=== PATIENT | male | born 2000 | race Caucasian/White ===

== ENCOUNTER 2021-09-23 15:37 | Outpatient (REF) | payer BC, SELFPAY ==
--- NOTE | ~2021-09-23 | CT_ITS ---
EXAMINATION: CT SOFT TISSUE NECK WITHOUT CONTRAST CLINICAL INFORMATION: Localized swelling, mass and lump of the neck. COMPARISON: None TECHNIQUE: Helical imaging was performed in the axial plane with generation of coronal and sagittal reformatted images. This CT examination was performed using dose optimization techniques as appropriate, variously including the following: *Automated exposure control *Adjustment of mA and/or kV according to patient size (this includes techniques or standardized protocols for targeted exams where dose is matched to indication/reason for exam; i.e. extremities or head) *Use of iterative reconstruction technique DLP: 296 mGy-cm FINDINGS: There is a 1.1 cm lymph node and a 0.81 cm lymph node at level Ia midline. The measurements and the density are within normal limits. Similar shotty lymph nodes are seen in the submandibular space measuring 1.0 cm. The parotid glands are homogeneous in attenuation. The submandibular glands are normal. No contour abnormality or pathologic enhancement is seen within the oral cavity or pharyngeal mucosal space. The laryngeal structures are normal. The parapharyngeal fat is preserved. The carotid sheath vasculature opacifies normally. No extramucosal soft tissue mass or fluid collection is seen. No retropharyngeal fluid collection is seen. The thyroid gland is normal. The superior mediastinum is unremarkable. The lung apices are clear. The mastoid air cells and visualized portions of the paranasal sinuses are well aerated. The temporomandibular joints are normal. No periapical disease is identified. No osseous abnormalities are seen. The imaged portions of the brain parenchyma are unremarkable. CT/CT soft tissue neck wo con IMPRESSION: Two benign-appearing lymph nodes midline level Ia, where a marker has been placed.
== END 2021-09-23 15:38 | disposition home or self-care (01) ==
LOC: HO.CT 15:37
PROVIDERS: Visit Provider Otolaryngology
DX: R22.1 Localized swelling, mass and lump, neck (principal)
CPT/HCPCS: 70490

== ENCOUNTER 2025-01-24 13:39 | Outpatient (REF) | payer BC, SELFPAY ==
[2025-01-24 13:42] LABS: MANUAL DIFF FLAG NO
[2025-01-24 13:53] LABS: Basophils Percent Auto 0.5 % (0-2); Eosinophils Absolute Auto 0.1 X10*3/uL (0.0-0.4); Eosinophils Percent Auto 1.9 % (0-4); Hematocrit 35.9 % (42.0-52.0); Hemoglobin 11.5 g/dl (14.0-18.0); Imm Gran Abs Auto 0.03 X10*3/uL (0.00-0.03); Imm Gran Pct Auto 0.5 % (0.0-0.4); Lymphocytes Absolute Auto 1.4 X10*3/uL (1.2-4.9); Lymphocytes Percent Auto 21.8 % (20-40); Mean Corpuscular Hemoglobin 20.8 pg (27.0-33.0); Mean Platelet Volume 9.9 fL (9.4-12.4); Monocytes Absolute Auto 0.4 X10*3/uL (0.1-1.2); Monocytes Percent Auto 6.1 % (2-11); Neutrophils Absolute Auto 4.3 x10*3/uL (2.0-8.3); Neutrophils Percent Auto 69.2 % (45-73); Platelet Count 259 X10*3/uL (160-400); Red Blood Count 5.52 X10*6/uL (4.60-5.80); Red Cell Distribution Width 16.3 % (11.0-16.0); White Blood Count 6.3 X10*3/uL (4.8-10.8)
--- OUTSIDE RECORDS SUMMARY | 2025-01-24 13:57 | XMS_ITS | Encounter Summary ---
Author Organization [facility] Address [address] [place] [address] Phone Care Team Providers Care Surveillance Operator Name Role Phone Steven Dawson MD Primary Care Provider Unavailabl e Encounter Details Date Type Department Care Team (Late st Contact Info) Description 05/03/2017 Conversion Encounter [facility] - [address], [address] [place] [address] Steven Dawson MD Social History Tobacco Use Types Packs/Day Years Used Date Smoking Tobacco: Never Assessed Sex and Gender Information Value Date Recorded Sex Assigned at Not on file Legal Sex Male 2:32 PM EST Gender Identity Not on file Sexual Orientation Not on file documented as of this encounter Plan of Treatment Not on file documented as of this encounter Visit Diagnoses Not on filedocumented in this encounter Care Teams Surveillance Operator Relationship Specialty Start Date End Date Steven Dawson MD PCP - General 11/15/16 04/04/21 documented as of this encounter
--- OUTSIDE RECORDS SUMMARY | 2025-01-24 13:57 | XMS_ITS | Patient Health Record ---
Author Organization Efren Manning MD Address [address] [place], [place] [id number] Care Team Providers Care Security Services Specialist Name Role Phone Efren Manning Primary Care Provider [phone] Allergies No Known Allergies Results Component Value Reference Range Notes Hold Gold (Not yet reviewed by provider) Interpretation: Performing Lab:[facility], [place], [address] [place] [phone] Notes/Report: Hold Gold See Note Specimen held untested for 24 hours; Call to request Chemistry testing. Reason For Referral No Information Medications Medication SIG (Take, Route, Frequency, Duration) Notes Start Date End Date Status clonazePAM 1 MG 1/2 tab in the morni ng orally one tab at night for 30 days 09/20/2024 Active Zoloft 50 MG 1 tablet Orally Once a day for 30 day(s) 08/20/2019 Not-Taking clonazePAM 1 MG one half tab in morn ing and 1 tab at night by mouth twice a day for 30 days 12/30/2024 Active ZyrTEC Allergy 10 MG 1 tablet Orally Onc e a day for 30 day(s) Active Immunizations Vaccine Route Administration Date Status Comme arturo Fluarix Quadrivalent Unknown 08/17/[address] Perez Fluarix Quadrivalent Unknown 10/08/[address] Perez Fluarix Quadrivalent Unknown 09/15/2020 Administered Fluarix Quadrivalent Unknown 07/13/2023 Administered Social History Tobacco Use: Social History Observation Description Date Details (start date - stop date) Never Smoker NA - NA Tobacco Use/Smoking Question Answer Notes Patient is a nonsmoker Additional Findings: Tobacco Non-User Cu rrent non-smoker, currently using no form of tobacco Alcohol Screen Question Answer Notes Did you have a drink contain ing alcohol in the past year? Yes How often did you have a dri nk containing alcohol in the past year? 2 to 4 times a month (2 points) How many drinks did you have on a typical day when you were drinking in the past year? 1 or 2 drinks (0 point) How often did you have 6 or more drinks on one occasion in the past year? Never (0 point) Points 2 Interpretation Negative Problems Problem Type SNOMED Code ICD Code Onset Dates Problem Status W/U Status Risk Notes Problem 18926766 Anxiety (F41.9) Active confirmed Problem 924445863 Moderate episode of recurrent major depressive disorder (F33.1) Active confirmed Vital Signs Blood pressure diastolic 58 mm Hg 01/24/2025 eyal ght is up 2 pounds since 09-15-2020 Height 66.5 in 01/24/2025 weight is up 2 pounds since 09-15-2020 Blood pressure systolic 110 mm Hg 01/24/2025 weig ht is up 2 pounds since 09-15-2020 Weight 130 lbs 01/24/2025 weight is up 2 pounds since 09-15-2020 BMI 20.67 kg/m2 01/24/2025 weight is up 2 pounds since 09-15-2020 Encounters Encounter Location Date Provider Diagnosis Efren Manning MD [address] [place] [id number] 01/24/2025 Efren Manning Anxiety F41.9 ; Annual physical exam Z00.00 and Moderate episode of recurrent major depressive disorder F33.1 Efren Manning MD [address] [place] [address] [id number] 02/23/2024 Efren Manning MD [address] [place] [address] [id number] 03/08/2024 Efren Manning MD [address] [place] [address] [id number] 03/08/2024 Efren Manning MD [address] [place] [address] [id number] 03/08/2024 Efren Manning Anxiety F41.9 Efren Manning MD [address] [place] [address] [id number] 04/15/2024 Efren Manning MD [address] [place] [address] [id number] 05/17/2024 Efren Manning Anxiety F41.9 Efren Manning MD [address] [place] [address] [id number] 05/30/2024 Efren Manning MD [address] [place] [address] [id number] 06/03/2024 Efren Manning MD [address] [place] [address] [id number] 06/20/2024 Efren Manning MD [address] [place] [address] [id number] 07/19/2024 Efren Manning MD [address] [place] [address] [id number] 08/09/2024 Efren Manning MD [address] [place] [address] [id number] 08/19/2024 Efren Manning Anxiety F41.9 Efren Manning MD [address] [place] [address] [id number] 09/20/2024 Efren Manning Anxiety F41.9 Efren Manning MD [address] [place] [address] [id number] 10/03/2024 Efren Manning MD [address] [place] [address] [id number] 10/29/2024 Efren Manning MD [address] [place] [address] [id number] 11/29/2024 Efren Manning Anxiety F41.9 Efren Manning MD [address] [place] [address] [id number] 12/26/2024 Efren Manning MD [address] [place] [address] [id number] 12/30/2024 Efren Manning Assessments Encounter Date Diagnosis (ICD Code) Assessment Notes Treatment Notes Treatment Clinical Notes Section Notes 01/24/2025 Anxiety (ICD-10 - F41.9) referral to [facility] and ketamine with dr prieto in [place]/ INFO GIVEN TO STEFANIA TO CALL FOR APPT AT [facility] 01/24/2025 Annual physical exam (ICD-10 - Z00.00) 03/08/2024 Anxiety (ICD-10 - F41.9) 05/17/2024 Anxiety (ICD-10 - F41.9) 08/19/2024 Anxiety (ICD-10 - F41.9) 09/20/2024 Anxiety (ICD-10 - F41.9) 11/29/2024 Anxiety (ICD-10 - F41.9) 01/24/2025 Moderate episode of recurrent major depressive disorder (ICD-10 - F33.1) Plan Of Treatment Pending Test Test Name Order Date Complete Blood Count Auto Diff 5 Comprehensive [place]. Panel Fast 5 Lipid Panel with Reflex 01/24/2025 Hold Gold 01/24/2025 Insurance Providers Payer Name Payer Address Payer Phone Subscriber Number Group Number Insured Name Patient Relationship to Insured Coverage Start Date Coverage End Date [employer] [address] [place], [place] [id number] STEFANIA PEREZ Self - patient is the insured
--- OUTSIDE RECORDS SUMMARY | 2025-01-24 13:57 | XMS_ITS ---
Author Organization fEren Manning MD Address [address] [place] [phone] Care Team Providers Care School Janitor Name Role Phone Efren Manning Primary Care Provider [phone] REASON FOR VISIT RF Clonazepam Medications Medication SIG (Take, Route, Fr equency, Duration) Notes Start Date End Date Status clonazePAM 1 MG one half tab in morn ing and 1 tab at night by mouth twice a day for 30 days 12/30/2024 Active Encounters Encounter Location Date Provider Diagnosis Efren Manning MD [address] [place] [id number] 12/30/2024 Efren Manning Plan Of Treatment Medication Medication Name Sig Start Date Stop Date Notes clonazePAM 1 MG one half tab in morn ing and 1 tab at night by mouth twice a day for 30 days 12/30/2024 Progress Notes * STEFANIA PEREZ MDOB:2000 (24 yo M)Acc No.[id number]:12/30/2024 Patient:?STEFANIA PEREZ :2000???Age:24 Y???Sex:Male Address: [place], [address] * Refills? Refill clonazePAM Tablet, 1 MG, by mouth, 45, one half tab in morning and 1 tab at night, twice a day, 30 days, Refills=0 * true * Date:? Generated for Davei cecilia/Doug/eTransmitting on:?01/24/2025 01:57 PM EDT
--- OUTSIDE RECORDS SUMMARY | 2025-01-24 13:57 | XMS_ITS | Clinical Summary ---
Author Organization [facility] Address [address] [place] [phone] Phone Care Team Providers Care Drop Forge Operator Name Role Phone Unavailable Primary Care Provider Unavailabl e Allergies No known active allergies Medications methylphenidate (CONCERTA) 18 MG CR tabletIndications: Attention deficit hyperactivity disorder (ADHD), predominantly inattentive type Take 1 tablet (18 mg total) by mouth every morning Earliest Fill Date: 05/17/18. 30 tablet 8 Active methylphenidate (CONCERTA) 18 MG CR tabletIndications: Attention deficit hyperactivity disorder (ADHD), predominantly inattentive type Take 1 tablet (18 mg total) by mouth every morning Earliest Fill Date: 07/11/18. 30 tablet 8 Active BuPROPion HCl (WELLBUTRIN XL PO) Take by mouth. Active Active Problems Problem Noted Date Diagnosed Date Weight loss 08/15/2018 Overview (08/15/2018): Cause uncertain - may be due concerta and missing lunch - will recheck at home in 6 weeks Attention deficit hyperactiv ity disorder (ADHD), predominantly inattentive type 05/17/2018 Overview (08/07/2018): 04/[address] Ceja strongly indicated depression. Signs of ADHD were felt to be less significant and possibly caused by the depression. Dr. Ceja recommended regular therapy and seeing a psychiatrist in [place] as well as to consider a trial of bupropion. Depression 09/15/2015 Overview (08/07/2018): 09/15/2015 Doing well now. Not seeing a counsellor now, occ anxiety. 04/[address] Ceja strongly indicated depression. Signs of ADHD were felt to be less significant and possibly caused by the depression. Dr. Ceja recommended regular therapy and seeing a psychiatrist in [place] as well as to consider a trial of bupropion. Assessment & Plan (08/15/2018 6:02 PM EST): Doing much better - seeing psychiatrist in [place] Assessment & Plan (05/17/2018 8:04 AM EDT): See eval with Dr. Ceja. Primarily depression with some ADHD features. Will have a trial of Concerta, see a therapist in [place] and see a psychiatrist for possible Wellbutrin trial. Assessment & Plan (04/16/2018 4:36 PM EDT): Jayesh is doing much better overall, but it is still difficult to sort out the issues contributing to the sense of being weighted down, not interacting with others as much as he would like, and possible inattention as a small aspect of life issues for Jayesh. Strongly recommend seeing a counselor when return to school next month. Some substance use, but not at a level likely to be a primary cause or light truck driver of the issues. Will refer to Ric Ceja for re-evaluation for possible attentional or anxiety component to current issues. Assessment & Plan (09/27/2017 12:13 PM EST): More depression past few mos. On Lexapro and Abilify per Dr. Corley, but stopped the Abilify due to fatigue all day. 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 Had normal labs. Poor appetite. Hard time concentrating and will see Ric Ceja tomorrow. Has anxiety also. No thoughts of self harm. Not seeing a counselor now. Will also get eval at [employer] therapist in order to see a local psychiatrist in [facility]. Recheck here with me in 2-3 months. Thalassemia minor 09/03/2015 Overview (09/22/2017): 09/03/2015 FH positive for thal minor in mom and maternal GM. See labs in 1999. Low MCV, slightly low ferritin and Fe/TIBC, Hgb A=95 w/o any abnormal hemoglobins identified. Repeat labs 08/2015 show low MCV, MCH, and elevated RDW, but ferritn is well wnl. Likely still most c/w thal minor w/o iron deficiency. Resolved Problems Problem Noted Date Diagnosed Date Resolved Date Other specified disorders of male genital organs 07/23/2015 09/27/2017 Overview (09/22/2017): 07/23/2015 Recurrent discomfort over inferior pole of either testicle, L>R, that comes and goes. Now resolved since 2014. Scoliosis 07/22/2015 09/27/2017 Overview (09/22/2017): 07/22/2015 Very mild Immunizations Immunization Administration Dates Next Due DTaP 05/14/2003, 0,1999,08/27,1999 H1N1 09/22/2009 HPV, Quadrivalent 11/30/2012,07/26/2012,05/17/20 12 Hep B, ped/adol 07/24/2000,01/28/2000,1999 Hib (PRP-T) 05/14/2003, 0,1999,06/24 IPV 05/14/2003, 0,01/28/2000,08/27,1999 Influenza 08/08/2010,05/15/2009 Influenza, injectable, quadr ivalent, preservative free 09/08/2017,08/10/2016,07/23/2015,08/09,06/28/2013 Influenza, injectable, trivalent 07/26/2012 MMR 05/14/2003,07/24/2000 Meningococcal Conj (Menactra) MCV4P 08/10/2016,0 04/29/2010 Pneumococcal Conjugate 05/14/2003,07/24/2000 Tdap 04/29/2010 Varicella 09/14/2007,05/05/2000 Family History Relation Name Status Comments Cousin 1 Alive Paternal Cousin s: Healthy Cousin 2 Alive Maternal Cousin s: Spectrum disorder Father Alive Father: Allergi es, Gout (no attacks since taking Allopurinol), High cholesterol (on med), on Lisinopril for ? high blood pressure Father's Brother Alive Paternal Un marco antonio: Gout, High cholesterol (on med), Prostate cancer Maternal Grandfather Mat GFa ther: Dementia Maternal Grandmother Mat GMo ther: Thalassemia minor, of respiratory failure (? lung cancer) Mother Alive Mother: Thalass emia minor Other 1 Alive Other 2 Alive Allergies, Gout (no attacks since taking Allopurinol), High cholesterol (on med), on Lisinopril for ? high blood pressure Other 3 Alive Gout, High chol esterol (on med), Prostate cancer Other 4 Alive Healthy Other 5 Alive Healthy Other 6 Alive Healthy Other 7 Alive Heart attack (l ate 39 Other 8 Alive Spectrum disord er Other 9 Alive Thalassemia min or Other 10 Breast cancer ( at age 73) Other 11 Dementia Other 12 Thalassemia min or, of respiratory failure (? lung cancer) Paternal Grandfather Alive Pat GFa ther: Heart attack (late 40 Paternal Grandmother Pat GMo ther: Breast cancer ( at age 73) Social History Tobacco Use Types Packs/Day Years Used Date Smoking Tobacco: Never Smokeless Tobacco: Never Alcohol Use Standard Drinks/Week Comments Yes 2 (1 standard drink = 0.6 oz pur e alcohol) Very infrequent Sex and Gender Information Value Date Recorded Sex Assigned at Not on file Legal Sex Male 2:32 PM EST Gender Identity Not on file Sexual Orientation Not on file Last Filed Vital Signs Vital Sign Reading Time Taken Comments Blood Pressure 124/72 08/15/2018 5:43 PM EST Pulse 95 08/15/2018 5:43 PM EST Temperature 36.9 ??C (98.5 ??F) 09/15/2015 1 2:00 AM EST Respiratory Rate - - Oxygen Saturation - - Inhaled Oxygen Concentration - - Weight 58.9 kg (129 lb 12.8 oz) 08/15/2018 5:43 PM EST Height 168.9 cm (5' 6.5 ) 08/15/2018 5:43 PM EST Body Mass Index 20.64 08/15/2018 5:43 PM EST Plan of Treatment Health Maintenance Due Date Last Done Comments DTaP,Tdap,and Td Vaccines (7 - Td or Tdap) 04/29/2020 04/29/2010, 05/14/2003, 07/24/2000, Additional history exists Influenza Vaccines (#1) 2024 09/08/20 17, 08/10/2016, 07/23/2015, Additional history exists COVID-19 Vaccine ( season) 2024 Hepatitis B Vaccines Completed 07/24/2000, 01/28/2000, 1999 HIB Vaccines Completed 05/14/2003, 09/27, 1999, Additional history exists IPV Vaccines Completed 05/14/2003, 04/25, 01/28/2000, Additional history exists MMR Vaccines Completed 05/14/2003, 07/24/2000 Pneumococcal Vaccine Completed 05/14/2003, 07/24/20 00 Varicella Vaccines Completed 09/14/2007, 05/05/2000 HPV Vaccines Completed 11/30/2012, 09/2011, 05/17/2012 Meningococcal Vaccine Completed 08/10/2016, 010 Hepatitis A Vaccines Aged Out No long er eligible based on patient's age to complete this topic Men B Vaccine Aged Out No longer elig ible based on patient's age to complete this topic
--- OUTSIDE RECORDS SUMMARY | 2025-01-24 13:57 | XMS_ITS ---
Author Organization Efren Manning MD Address [address] [place] [phone] Care Team Providers Care Nude Model Name Role Phone Efren Manning Primary Care Provider [phone] REASON FOR VISIT Ins change Encounters Encounter Location Date Provider Diagnosis Efren Manning MD [address] [place] [phone] 12/26/2024 Efren Manning Plan Of Treatment No Information Progress Notes * FERNANDO PEREZ MDOB:2000 (24 yo M)Acc No.[id number]:12/26/2024 Patient:?FERNANDO PEREZ :2000???Age:24 Y???Sex:Male Address:[address] [place], [address] * true * Date:? Generated for Davei cecilia/Doug/eTransmitting on:?01/24/2025 01:57 PM EDT
--- OUTSIDE RECORDS SUMMARY | 2025-01-24 13:57 | XMS_ITS ---
Author Organization Efren Manning MD Address [address] [place], [place] [id number] Care Team Providers Care Bindery Technician Name Role Phone Efren Manning Primary Care Provider Allergies No Known Allergies REASON FOR VISIT here for yearly anxiety Medications Medication SIG (Take, Route, Frequency, Duration) [...] e a day for 30 day(s) Active Social History Tobacco Use: Social History Observation [...] Never (0 point) Points 2 Interpretation Negative Vital Signs Blood pressure systolic 110 mm Hg 01/25/20 25 Blood pressure diastolic 58 mm Hg 025 Height 66.5 in 01/24/2025 Weight 130 lbs 01/24/2025 BMI 20.67 kg/m2 01/24/2025 weight is up 2 pounds since 09-15-2020 Encounters Encounter Location Date Provider Diagnosis Efren Manning MD [address] [place], [place] [id number] 01/24/2025 Efren Manning Anxiety F41.9 ; Annual physical exam Z00.00 and Moderate episode of recurrent major depressive disorder F33.1 Assessments Encounter Date Diagnosis (ICD Code) Assessment Notes Treatment Notes Treatment Clinical Notes Section Notes 01/24/2025 Anxiety (ICD-10 - F41.9) referral to [facility] and ketamine with dr prieto in [facility]/ INFO GIVEN TO STEFANIA TO CALL FOR APPT AT [facility] 01/24/2025 Annual physical exam (ICD-10 - Z00.00) 01/24/2025 Moderate episode of recurrent major depressive disorder (ICD-10 - F33.1) Plan Of Treatment Treatment Notes Assessment Notes Anxiety referral to [facility] and ketamine with dr prieto in [facility]/ INFO GIVEN TO STEFANIA TO CALL FOR APPT AT [facility] Pending Test Test Name Order Date Complete Blood Count Auto Diff 5 Comprehensive [place]. Panel Fast 5 Lipid Panel with Reflex 01/24/2025 Next Appt Details Follow Up: 2 Months, Reason: Progress Notes * STEFANIA PEREZ MDOB:2000 (24 yo M)Acc No.[id number]:01/24/2025 Progress Notes Patient:?STEFANIA PEREZ Provider:?Efren Manning MD :2000???Age:24 Y???Sex:Male Angel e:01/24/2025 Address:[address] [place] [address] [id number] Subjective: * Chief Complaints: * ???1. Here for yearly anxiet y. * HPI: ???Depression Screening:?PHQ-9?Little interest or pleasure in doing things?More than half the days,?Feeling down, depressed, or hopeless?Nearly every day,?Trouble falling or staying asleep, or sleeping too much?Not at all,?Feeling tired or having little energy?Nearly every day,?Poor appetite or overeating?Nearly every day,?Feeling bad about yourself or that you are a failure, or have let yourself or your family down?Nearly every day,?Trouble concentrating on things, such as reading the newspaper or watching television?Nearly every day,?Moving or speaking so slowly that other people could have noticed; or the opposite, being so fidgety or restless that you have been moving around a lot more than usual?Several days,?Thoughts that you would be better off or of hurting yourself in some way?Not at all,?Total Score?18,?Interpretation?Moderately Severe Depression.?Interpretation and Intervention?Depression Screening Findings?Positve - Review of PHQ-9 found positive for depression,?Follow-Up for Depression?: Existing condition.?SDOH Questions:?SDOH Questions?In the past year have you been worried about losing housing??No,?In the past year have you or any family members you live with been unable to get any of the following when it was really needed? Check all that apply:?None.?Symptom(s):? patient is a 24 yo male having a lot of panic attacks. had been on buspar and it made him nauseaous. had a therapist in [place] but his insurance didn't cover it./ having some paranoid thoughts and panic is getting worse. * ROS:?General/Constitutional:?Denies?Chills.?Denies?Fatigue.?Denies?Fever.?Denies?Headache.?ENT:?Denies?Sore throat.?Respiratory:?Denies?Cough.?Denies?Shortness of breath at rest.?Denies?Shortness of breath with exertion.?Gastrointestinal:?Denies?Diarrhea.?Denies?Nausea.?Psychiatric:?Admits?Anxiety.?Admits?Depressed mood.?Admits?Difficulty sleeping.?Admits?Stressors.?Admits?Substance abuse,?nicotine.?Denies?Suicidal thoughts.? * Medical History:?Medical His tory Verified. * Family History:?Father: wyatt sheldon 70 yrs.?Mother: alive 68 yrs.?1 brother(s) . .? No Famly history of drug abuse or mental illness. * Social History:?Tobacco Use:?Tobacco Use/Smoking?Patient is a?nonsmoker,?Additional Findings: Tobacco Non-User?Current non-smoker, currently using no form of tobacco.?Drugs/Alcohol:?Alcohol Screen?Did you have a drink containing alcohol in the past year??Yes,?How often did you have a drink containing alcohol in the past year??2 to 4 times a month (2 points),?How many drinks did you have on a typical day when you were drinking in the past year??1 or 2 drinks (0 point),?How often did you have 6 or more drinks on one occasion in the past year??Never (0 point),?Points?2,?Interpretation?Negative.?Miscellaneous:?Caffeine: no. Children: no. Exercise: yes, run and play tennis a couple times a week. Housing: living with relatives. Marital status: single. Occupation: weeks/months/years. Pets: none. Travel outside of the [place]: no. * Medications:?Taking ZyrTEC A llergy 10 MG Tablet 1 tablet Orally Once a day , Taking clonazePAM 1 MG Tablet 1/2 tab in the morning orally one tab at night , Taking clonazePAM 1 MG Tablet one half tab in morning and 1 tab at night by mouth twice a day , Not-Taking/PRN Zoloft 50 MG Tablet 1 tablet Orally Once a day , Discontinued buPROPion HCl ER (SR) 150 MG Tablet Extended Release 12 Hour 1 tablet in the morning Orally Once a day , Discontinued busPIRone HCl 7.5 MG Tablet 1 tablet Orally Twice a day , Discontinued Amoxicillin-Pot Clavulanate 875-125 MG Tablet 1 tablet Orally every 12 hrs , Medication List reviewed and reconciled with the patient * Allergies:?N.K.D.A. Objective: * Vitals:?Ht: 66.5, Wt: 130, B IN:20.67, BP:110/58, Wt-k.97. weight? is up 2 pounds since 09-15-2020. * Examination: ???General Examination: ?GENERAL APPEARANCE:?well developed, well nourished.?HEAD:?normocephalic.?SKIN:?good turgor.?HEART:?regular rate and rhythm, no murmurs, rubs, gallops.?LUNGS:?no wheezes, rales, rhonchi, good air movement, clear to auscultation bilaterally.? Assessment: * Assessment: 1.?Annual physical exam - Z0 0.00 (Primary)???2.?Anxiety - F41.9???3.?Moderate episode of recurrent major depressive disorder - F33.1??? Plan: * Treatment: 2.?Anxiety?LAB: Complete Blood Count Auto Diff ?LAB: Comprehensive [place]. Panel Fast ?LAB: Lipid Panel with Reflex Notes: referral to [facility] and ketamine with dr prieto in [facility]/ INFO GIVEN TO STEFANIA TO CALL FOR APPT AT [facility]?? 3.?Moderate episode of recur rent major depressive disorder?LAB: Complete Blood Count Auto Diff ?LAB: Comprehensive [place]. Panel Fast ?LAB: Lipid Panel with Reflex * Procedure Codes:?02931 VENIP UNCT, ROUTINE* * Follow Up:?2 Months * * The named appointment provid er may or may not be the originator of this progress note, and it is not deemed complete until electronically signed by the appointment provider. Sign off status: Pending * Provider:?Efren Manning MD Date:?0 01/24/2025 Generated for Juan Carlos brooks/Doug/Kerline on:?01/24/2025 01:57 PM EDT History and Physical Notes * HPI (History of Present Illness) Category Sub-Category Detail Notes Category Not es Symptom(s) patient is a 24 yo male having a lot of panic attacks. had been on buspar and it made him nauseaous. had a therapist in [place] but his insurance didn't cover it./ having some paranoid thoughts and panic is getting worse. Depression Screening PHQ-9 Little inte rest or pleasure in doing things: More than half the days Feeling down, depressed, or hopeless: Ne laura every day Trouble falling or staying asleep, or sl eeping too much: Not at all Feeling tired or having little energy: N early every day Poor appetite or overeating: Nearly ever y day Feeling bad about yourself o r that you are a failure, or have let yourself or your family down: Nearly every day Trouble concentrating on thi ngs, such as reading the newspaper or watching television: Nearly every day Moving or speaking so slowly that other people could have noticed; or the opposite, being so fidgety or restless that you have been moving around a lot more than usual: Several days Thoughts that you would be b sasha off or of hurting yourself in some way: Not at all Total Score: 18 Interpretation: Moderately Severe Depres siva Interpretation and Intervention Depressi on Screening Findings: Positve - Review of PHQ-9 found positive for depression Follow-Up for Depression: : Existing con dition SDOH Questions SDOH Questions In the past year have you been worried about losing housing?: No In the past year have you or any family members you live with been unable to get any of the following when it was really needed? Check all that apply:: None Examination Category Sub-Category Detail Notes Category Not es General Examination GENERAL APPEARANCE: well developed , well nourished HEAD: normocephalic HEART: regular rate and rhy thm, no murmurs, rubs, gallops LUNGS: no wheezes, rales, r honchi, good air movement, clear to auscultation bilaterally SKIN: good turgor
--- OUTSIDE RECORDS SUMMARY | 2025-01-24 13:58 | XMS_ITS | Patient Health Record ---
Author Organization [facility] Address [address] [facility] [address] [place] [address] Allergies Allergen (clinical drug ingredient) Drug/Non Drug Allergy documented on EMR Reaction Allergy Type Onset Date Status peanut allergenic extract Peanut (Diagnostic) Unknown Drug Allergy Active peanut oil Peanut Oil Unknown Drug Allergy Activ e Reason For Referral No Information Medications Medication SIG (Take, Route, Fr equency, Duration) Notes Start Date End Date Status clonazePAM 0.5 MG 1 tablet at bedtime Orally Once a day Active Problems Problem Type SNOMED Code ICD Code Onset Dates Problem Status W/U Status Risk Notes Problem Hemorrhage of rectum and anus (485908391) Hemorrhage of anus and rectum (K62.5) Active confirmed Problem Atopic dermatitis, unspecified (L20.9) Active confirmed Plan Of Treatment No Information Insurance Providers Payer Name Payer Address Payer Phone Subscriber Number Group Number Insured Name Patient Relationship to Insured Coverage Start Date Coverage End Date [employer] P.OBaldev [place] [id number] [place] [phone] [id number] Jayesh Sales Self - patient is the insured
[2025-01-24 14:30] LABS: Alanine Aminotransferase 31 U/L (0-40); Albumin Level 4.7 g/dL (3.5-5.0); Anion Gap 14 (12-20); Aspartate Amino Transferase 32 U/L (5-37); Bilirubin Total 0.3 mg/dL (0.0-1.0); Blood Urea Nitrogen 15 mg/dL (9-16); Calcium 9.5 mg/dL (8.4-10.2); Carbon Dioxide 23 mmol/L (22-29); Chloride 106 mmol/L (96-108); Cholesterol 131 mg/dL (<200); Estimated Glomerular Filt Rate > 60; Glucose Fasting 93 mg/dL (60-99); HDL Cholesterol 51 mg/dL (>40); LDL Cholesterol Calculated 70 mg/dL (<100); Potassium 4.4 mmol/L (3.3-5.1); Sodium 139 mmol/L (135-145); Total Protein 7.4 g/dL (6.5-8.0); Triglycerides 50 mg/dL (<150)
[2025-01-24 14:33] LABS: Reflex LDLD? No
[2025-01-24 14:43] LABS: Alkaline Phosphatase 79 U/L (39-117)
== END 2025-01-24 13:40 | disposition home or self-care (01) ==
LOC: HO.LNP 13:39
PROVIDERS: Visit Provider Internal Medicine
DX: Z00.00 Encounter for general adult medical examination without abnormal findings (principal); Z13.6 Encounter for screening for cardiovascular disorders; F41.9 Anxiety disorder, unspecified; F33.1 Major depressive disorder, recurrent, moderate
CPT/HCPCS: 80053; 80061; 85025